=== PATIENT | female | born 1985 | race Two or more races ===

== ENCOUNTER 2017-05-24 07:22 | Inpatient (IN) | payer OTHER ==
[~2017-05-24] VITALS: Ht 160 cm; Wt 89.3 kg
[2017-05-24] VITALS (11 sets, daily range): BP systolic 113–134; BP diastolic 57–88
[~2017-05-24 07:22] MED LIST: ADVAIR HFA120 INHAL1 IH; ANAPROX DS550 M1 PO; ARTANE2 MG PO; AUGMENTIN875 MG PO; BENZTROPINE MESY1 MG PO; CAMILA0.35 MG PO; COGENTIN0.5 MG PO; COGENTIN1 MG PO; ESKALITH300 M1 PO; FERGON324 MG PO; FISH OIL 1,0001 EA10 PO; HALDOL5 MG PO; IBUPROFEN800 MG PO; LITHIUM CARBON300 MG PO; LaMICtal PO; MICRONOR0.35 MG PO; Motrin PO; NOHOMEMEDS; PRENATAL TABLE1 EAC3 PO; PRENATAL VITAM1 EAC2 PO; PROAIR HFA8.5 GM IH; RISPERDAL3 MG PO; RISPERDAL4 MG PO; RISPERIDONE2 MG PO; SYMBICORT60 INHALAT IH; TYLENOL EXTRA500 MG PO; VALIUM5 MG PO; VENTOLIN HFA18 GM IH; VITAMIN B122500 MCG PO
[2017-05-24 09:59] LABS: EOSINOPHIL (%) 0.8 % (0-5); EOSINOPHIL COUNT 0.1 K/uL (0-0.3); HEMATOCRIT 34.8 % (36.0-46.0); IMMATURE GRANULOCYTE (%) 1.2 % (0.0-0.7); IMMATURE GRANULOCYTE COUNT 0.1 K/uL; INSTRUMENT ABS NEUTROPHIL CT 5.5 K/uL; LYMPHOCYTE COUNT 2.5 K/uL (1.0-2.8); MCH 28.4 PG (29.0-34.0); MCHC 33.9 G/DL (30.0-36.0); MCV 83.7 FL (83-99); MEAN PLAT.VOLUME 10.9 uM^3 (9.5-12.4); MONOCYTE (%) 7.9 % (3-12); MONOCYTE COUNT 0.7 K/uL (0-0.8); NEUTROPHIL (%) 62.1 % (45-76); NEUTROPHIL COUNT 5.5 K/uL (1.8-6.4); PLATELET COUNT 182 K/uL (156-360); RBC DIS.WIDTH-CV 14.4 % (11.8-14.6); RBC DIS.WIDTH-SD 43.7 % (39-53); RED BLOOD COUNT 4.16 M/uL (3.80-5.20); WHITE BLOOD COUNT 8.9 K/uL (4.1-10.2)
[2017-05-25 07:18] LABS: EOSINOPHIL (%) 1.3 % (0-5); EOSINOPHIL COUNT 0.1 K/uL (0-0.3); HEMATOCRIT 32.2 % (36.0-46.0); IMMATURE GRANULOCYTE COUNT 0.1 K/uL; INSTRUMENT ABS NEUTROPHIL CT 4.8 K/uL; LYMPHOCYTE COUNT 2.2 K/uL (1.0-2.8); MCH 27.9 PG (29.0-34.0); MCHC 33.2 G/DL (30.0-36.0); MCV 83.9 FL (83-99); MEAN PLAT.VOLUME 11.2 uM^3 (9.5-12.4); MONOCYTE (%) 8.2 % (3-12); MONOCYTE COUNT 0.6 K/uL (0-0.8); NEUTROPHIL (%) 61.5 % (45-76); NEUTROPHIL COUNT 4.8 K/uL (1.8-6.4); PLATELET COUNT 152 K/uL (156-360); RBC DIS.WIDTH-CV 14.2 % (11.8-14.6); RBC DIS.WIDTH-SD 43.3 % (39-53); RED BLOOD COUNT 3.84 M/uL (3.80-5.20); WHITE BLOOD COUNT 7.8 K/uL (4.1-10.2)
[2017-05-25 07:40] VITALS: BP 116/83
[2017-05-26 07:10] VITALS: BP 113/71
[2017-05-26] MEDS ORDERED: IBUPROFEN800 MG PO (12:10)
== END 2017-05-26 12:56 | disposition home or self-care (01) | DRG 775 ==
LOC: LDRP-OP → 2WEST 07:23 → LDRP-OP 11:28 → 2WEST 05-26 12:56 → LDRP-OP 06-25 16:32
PROVIDERS: Advanced Practice Midwife
PROC: 10E0XZZ Delivery of Products of Conception, External Approach (ICD-10-PCS; principal; 2017-05-24)
DX: O99.344 Other mental disorders complicating childbirth (principal); E66.9 Obesity, unspecified; F31.9 Bipolar disorder, unspecified; O99.02 Anemia complicating childbirth; D57.3 Sickle-cell trait; O99.214 Obesity complicating childbirth; O99.52 Diseases of the respiratory system complicating childbirth; Z37.0 Single live birth; J45.909 Unspecified asthma, uncomplicated; Z87.891 Personal history of nicotine dependence; Z68.30 Body mass index [BMI] 30.0-30.9, adult; Z3A.39 39 weeks gestation of pregnancy
CPT/HCPCS: 85025